=== PATIENT | male | born 1955 | race Caucasian/White ===

== ENCOUNTER 2017-09-05 18:33 | Inpatient (IN) ==
--- NOTE | 2017-09-05 18:41 | Emergency Department Note ---
Disposition Clinical Impression: Pedal edema, History of CHF (congestive heart failure) Disposition: Admitted As Inpatient Condition: Good Instructions: Leg Edema (ED) Referrals: Yobani Berrios CNP [Primary Care Provider] - Forms: ED Satisfaction Letter Time of Disposition: 21:19 Extremity Problem HPI - General Chief complaint: ED Extremity Problem,Nontraumatic Stated complaint: out of lasix. legs swelling Time Seen by Provider: 09/05/17 18:38 Source: patient, EMS Mode of arrival: EMS Limitations: no limitations Nursing Notes Reviewed: Yes Vital Signs Reviewed: Yes - History of Present Illness HPI Narrative: patient is a 61-year-old male with past medical history of CHF, hypertension. He presents today via EMS due to LE edema. (Called EMS due to lack of transportation) Patient states that he has transportation issues and has not been able to make it to his PCP to get refills for his lasix. He usually takes lasix 40mg daily but has not had it for 8 days. He has noticed gradual worsening of LE edema up to his lower abdomen along with occasional shortness of breath. otherwise, denies chest pain, shortness of breath, N/V/D, fevers, abdominal pain. He presents today requesting a refill for lasix. - Related Data Previous Rx's Medication Instructions Recorded Hydrocodone/Acetaminophen [[place] 1 tab PO Q6H PRN #14 tab 06/07/15 5-325 Tablet] Permethrin CRM [Elimite] 1 appl TP ONCE #10 tube 06/07/15 Sulfamethoxazole/Trimeth DS 1 each PO BID 10 Days tablet 11/06/16 [Bactrim DS] cephALEXin [Keflex] 500 mg PO QID 10 Days capsule 11/06/16 Allergies Allergy/AdvReac Type Severity Reaction Status Date / Time No Known Allergies Allergy Verified 09/05/17 18:41 All systems ED: reviewed and negative except as stated. Constitutional: Denies: fever Cardiovascular: Reports: dyspnea on exertion. Denies: chest pain, palpitations Respiratory: Reports: dyspnea (mild occasional). Denies: cough, wheezes, hemoptysis Gastrointestinal: Denies: abdominal pain, nausea, vomiting, diarrhea Genitourinary: Denies: urgency, dysuria Neurological: Denies: headache, weakness, numbness, paresthesias Past Medical History - Past Medical History Attestation: Yes The following information was validated with the patient. Source: patient Medical history: Reports: asthma, COPD, hypertension Surgical history: Reports: no surgical history Psychiatric history: Reports: no psych history - Social History Smoking Status: Current every day smoker Smokeless Tobacco Status: No Alcohol use: Reports: heavy Drug use: Reports: none Physical Exam - General Limitations: no limitations General appearance: alert, in no apparent distress - Head Head exam: atraumatic, normocephalic, normal inspection - Eye Eye exam: Present: normal appearance, PERRL, EOMI - ENT ENT exam: normal exam, normal oropharynx, mucous membranes moist - Neck Neck exam: Present: normal inspection, full ROM, trachea midline - Chest Chest inspection: Present: normal inspection, symmetric chest wall rise - Respiratory Respiratory exam: Present: normal lung sounds bilaterally. Absent: respiratory distress, wheezes, stridor, accessory muscle use - Cardiovascular Cardiovascular exam: Present: regular rate, normal rhythm, normal heart sounds - Abdominal Exam Abdominal exam: Present: soft, Non-Tender, distention (mild distention). Absent : tenderness, guarding, rebound, rigidity - Extremities Exam Extremities exam: Present: normal capillary refill, pedal edema (bilateral LE pitting edema from feet to thighs and lower abdomen). Absent: full ROM, tenderness, calf tenderness - Neurological Exam Neurological exam: Present: alert, oriented X3 - Psychiatric Psychiatric exam: Present: normal affect, normal mood - Skin Skin exam: Present: warm, dry, intact, normal color Course Course Narrative: patient mildly hypertensive. The rest of the vitals were within normal vizcarra on room air. Physical exam shows: bilateral LE pitting edema from feet to thighs and lower abdomen. Otherwise, lungs are clear to auscultation, no acute distress,saturation in upper 90s on room air. patient has been out of Lasix for a days due to social reas We will obtain basic blood work, CXR, EKG to assess for any causes of acute worsening of LE edema besides lack of medication. 21:18 EKG shows no acute ST changes, chest x-ray negative. BNP is elevated in 300s, well above his baseline of 14. He is still having some shortness of breath. Patient was given IV Lasix 40 mg and he will be admitted to the hospitalist for further care. Vital Signs Temperature 97.6 F 09/05/17 18:39 Pulse Rate 71 09/05/17 18:39 Respiratory Rate 16 09/05/17 18:39 Blood Pressure 158/89 09/05/17 18:39 O2 Sat by Pulse Oximetry 97 09/05/17 18:39 Temperature 97.6 F 09/05/17 18:39 Pulse Rate 71 09/05/17 18:39 Respiratory Rate 16 09/05/17 18:39 Blood Pressure 158/89 09/05/17 18:39 O2 Sat by Pulse Oximetry 97 09/05/17 18:39 Oxygen Delivery Oxygen Delivery Room Air Extremity Problem, Nontraumati - MDM Narrative Medical decision making narrative: patient mildly hypertensive. The rest of the vitals were within normal vizcarra on room air. Physical exam shows: bilateral LE pitting edema from feet to thighs and lower abdomen. Otherwise, lungs are clear to auscultation, no acute distress,saturation in upper 90s on room air. patient has been out of Lasix for a days due to social reas We will obtain basic blood work, CXR, EKG to assess for any causes of acute worsening of LE edema besides lack of medication. 21:18 EKG shows no acute ST changes, chest x-ray negative. BNP is elevated in 300s, well above his baseline of 14. He is still having some shortness of breath. Patient was given IV Lasix 40 mg and he will be admitted to the hospitalist for further care. - Medical Records Medical records reviewed: Yes I reviewed the patient's medical records. - Lab Data Lab results reviewed: Yes I reviewed the patient's lab results. Result diagrams: 09/05/17 20:14 09/05/17 19:33 Lab Results 09/05/17 09/05/17 09/05/17 Range/Units 19:33 19:33 20:14 WBC 7.0 (4.3-11.1) K/mcL RBC 4.92 (4.19-5.50) M/mcL Hgb 16.7 (12.9-16.9) g/dL Hct 48.6 (37.5-50.1) % MCV 98.8 (83.0-100.0) fL MCH 33.9 H (28.0-33.3) pg MCHC 34.4 (31.6-35.5) g/dL RDW 13.9 (11.5-14.5) % Plt Count 199 (140-400) K/mcL MPV 9.0 L (9.4-12.4) fL Immature Gran % 0.4 (0-4) % Seg Neutrophils % 62.9 % Lymphocytes % 23.9 % Monocytes % 10.9 % Eosinophils % 1.0 % Basophils % 0.9 % Neutrophils # 4.4 (1.6-8.9) K/mcL Lymphocytes # 1.7 (0.6-4.6) K/mcL Monocytes # 0.8 (0.0-1.3) K/mcL Eosinophils # 0.1 (0.0-0.6) K/mcL Basophils # 0.1 (0.0-0.2) K/mcL Immature Plt Fraction 2.8 (1.1-6.1) % Sodium 126 L (136-145) mEq/L Potassium 4.7 (3.5-5.1) mEq/L Chloride 97 L (98-107) mEq/L Carbon Dioxide 18 L (23-29) mEq/L BUN 10 (8-23) mg/dL Creatinine 0.64 L (0.70-1.30) mg/dL Est GFR ( Amer) > 60 (> 60) Est GFR (Non-Af Amer) > 60 (> 60) BUN/Creatinine Ratio 16 (6-26) Glucose 89 (70-105) mg/dL Calculated Osmolality 261 L (280-300) Calcium 8.3 L (8.6-10.3) mg/dL Troponin I (< 0.04) ng/mL B-Natriuretic Peptide (Less than 100) pg/mL Specimen Rejected Clotted 09/05/17 09/05/17 Range/Units 20:14 20:42 WBC (4.3-11.1) K/mcL RBC (4.19-5.50) M/mcL Hgb (12.9-16.9) g/dL Hct (37.5-50.1) % MCV (83.0-100.0) fL MCH (28.0-33.3) pg MCHC (31.6-35.5) g/dL RDW (11.5-14.5) % Plt Count (140-400) K/mcL MPV (9.4-12.4) fL Immature Gran % (0-4) % Seg Neutrophils % % Lymphocytes % % Monocytes % % Eosinophils % % Basophils % % Neutrophils # (1.6-8.9) K/mcL Lymphocytes # (0.6-4.6) K/mcL Monocytes # (0.0-1.3) K/mcL Eosinophils # (0.0-0.6) K/mcL Basophils # (0.0-0.2) K/mcL Immature Plt Fraction (1.1-6.1) % Sodium (136-145) mEq/L Potassium (3.5-5.1) mEq/L Chloride (98-107) mEq/L Carbon Dioxide (23-29) mEq/L BUN (8-23) mg/dL Creatinine (0.70-1.30) mg/dL Est GFR ( Amer) (> 60) Est GFR (Non-Af Amer) (> 60) BUN/Creatinine Ratio (6-26) Glucose (70-105) mg/dL Calculated Osmolality (280-300) Calcium (8.6-10.3) mg/dL Troponin I < 0.03 (< 0.04) ng/mL B-Natriuretic Peptide 379 H (Less than 100) pg/mL Specimen Rejected - Radiology Data Radiology results reviewed: Yes I reviewed the patient's radiology results. Chest X-Ray 09/05/17 18:45 IMPRESSION: No acute cardiopulmonary process. D/ / Zachery Rivero MD / Zachery Rivero MD Interpreting Provider: Zachery Rivero MD - EKG Data EKG attestation: Yes I reviewed and interpreted this EKG. EKG results narrative: 09/05/17 at 18:47. NSR. Rate 71. FL 174, QRS 93, QTC 429, Normal axis. No acute ST elevation or depression. S.B.A.R. - S.B.A.R. Situation: Demographics, MOA Background: Presenting Complaint, Relevant PMH, Meds, & Allergies Assessment: Vital Signs, Course and respsone to treatment, Exam Concerns, Patient/Family Expectation, Pertinant Lab Results, Outstanding Labs Recommendation: Barrier(s) to disposition, Recommendation based on pending studies, treatments, or consults S.B.A.R. Report Given to: Dr. Jayjay Still Repor Time: 21:19 Attestation Statement - Attestation Attestation: I examined this patient and my medical decision-making was reviewed with the Resident Physician. I agree with the documented findings, disposition and treatment plan as described except to the extent set forth below. Patient presents with requesting medication refill. He is out of his Lasix. He reports increasing lower extremity edema. Plan to provide refill for Lasix. He has no dyspnea or evidence of heart failure on chest x-ray. His vital signs are without significant derangement. He has no chest pain or orthopnea. I do not think he needs inpatient diuresis at this point. Final disposition pending results of proBNP as well as troponin
[2017-09-05 19:55] LABS: BUN/Creatinine Ratio 16 (6-26); Blood Urea Nitrogen 10 mg/dL (8-23); Calcium 8.3 mg/dL (8.6-10.3); Carbon Dioxide 18 mEq/L (23-29); Chloride 97 mEq/L (98-107); Glucose 89 mg/dL (70-105); Osmolality,Calculated 261 (280-300); Potassium 4.7 mEq/L (3.5-5.1); Sodium 126 mEq/L (136-145); eGFR For African Americans > 60 (> 60); eGFR For Non-African Americans > 60 (> 60)
[2017-09-05 20:24] LABS: Basophils # 0.1 K/mcL (0.0-0.2); Basophils % 0.9 %; Eosinophils # 0.1 K/mcL (0.0-0.6); Hematocrit 48.6 % (37.5-50.1); Hemoglobin 16.7 g/dL (12.9-16.9); Immature Granulocytes % 0.4 % (0-4); Immature Platelets 2.8 % (1.1-6.1); Lymphocytes # 1.7 K/mcL (0.6-4.6); Lymphocytes % 23.9 %; Mean Corpuscular HGB Conc 34.4 g/dL (31.6-35.5); Mean Corpuscular Hemoglobin 33.9 pg (28.0-33.3); Mean Corpuscular Volume 98.8 fL (83.0-100.0); Monocytes # 0.8 K/mcL (0.0-1.3); Monocytes % 10.9 %; Neutrophils # 4.4 K/mcL (1.6-8.9); Platelet Count 199 K/mcL (140-400); Red Blood Count 4.92 M/mcL (4.19-5.50); Red Cell Distribution Width 13.9 % (11.5-14.5); Segmented Neutrophils % 62.9 %
[2017-09-05] MEDS ORDERED: Furosemide 40 MG/4 ML VIAL IVP ONE (20:59)
[2017-09-05] MEDS ORDERED: Naloxone 0.4 MG/ML INJ IVP PRN (22:48)
--- NOTE | 2017-09-05 23:25 | Internal Med History&Physical ---
Date of Encounter: 09/05/17 Time of Encounter: 23:00 Assessment and Plan (1) Congestive heart failure Current visit: Yes Status: Suspected Patient presenting with orthopnea and pedal edema. Suspected diastolic congestive heart failure. We will get echocardiogram. Continue IV Lasix. Monitor input and output. Telemetry monitoring. Daily weights. Fluid restriction at 1.5 L per 24 hours. Qualifiers: Congestive heart failure type: diastolic Congestive heart failure chronicity: acute on chronic Qualified Code(s): I50.33 - Acute on chronic diastolic (congestive) heart failure (2) Pedal edema Current visit: Yes Status: Acute Patient presenting with bilateral pedal edema which is worsening over the past week. He received IV Lasix in the ER. Will continue. Also check venous Dopplers bilaterally. (3) Tobacco abuse Current visit: Yes Status: Chronic Offered nicotine patch. Refused at this time. Counseled about cessation. (4) Alcohol use disorder Current visit: Yes Status: Chronic Will monitor for signs of withdrawal. Place patient on thiamine and folic acid (5) Hyponatremia Current visit: Yes Status: Chronic Patient appears to be having chronic hyponatremia. We will check urine sodium, creatinine and osmolality. Uncertain etiology. Watch sodium levels closely as patient receives IV Lasix. (6) DVT prophylaxis Current visit: Yes Status: Acute With subcutaneous heparin Internal Medicine - H&P: HPI Chief complaint: Bilateral lower extremity edema Admitted From: Emergency Dept Plans for Post Hospital Care: Home History of present illness: Mr. Hollins is a 61 year old male patient with a history of reported congestive heart failure presented to the ER with complaints of worsening swelling in both lower extremities extending up to the thigh. Patient had previously been on Lasix but had run out of this medication about 1 week back. Patient reports orthopnea. No chest pain. No nausea or vomiting. No palpitations. Patient says that he was diagnosed with lung cancer after 2 nodules were found and biopsied but was not treated for it. He does not follow up with cardiology. Denies any prior history of coronary artery disease or stents. Patient does report a history of chronic alcohol use and drinks about 5 beers daily. His last drink was prior to coming to the hospital. Past Med Surg Social Fam HX - Past Medical History Attestation: Yes The following information was validated with the patient. Source: patient Medical history: asthma, CHF, COPD, hypertension Psychiatric history: no psych history - Past Surgical History Surgical History: no surgical history - Social History Smoking Status: Current every day smoker Smokeless Tobacco Status: No Alcohol use: heavy, recent Drug use: none - Family History Mother History Unknown: Yes Internal Medicine - H&P: Meds Hydrocodone/Acetaminophen [[place] 5-325 Tablet] 1 tab PO Q6H PRN #14 tab [Rx] Permethrin CRM [Elimite] 1 appl TP ONCE #10 tube 06/07/15 [Rx] Sulfamethoxazole/Trimeth DS [Bactrim DS] 1 each PO BID 10 Days tablet 11/06/16 [Rx] cephALEXin [Keflex] 500 mg PO QID 10 Days capsule 11/06/16 [Rx] 3 Allergy/AdvReac Type Severity Reaction Status Date / Time No Known Allergies Allergy Verified 09/05/17 18:41 All Systems PM: A 10-system review of systems was performed and is negative for pertinent findings except as documented above in the HPI. - Constitutional Constitutional: no chills, no fever(s), no night sweats - EENT Eyes: no change in vision, no discharge, no pain, no photophobia Ears: no ear discharge, no ear pain, no tinnitus Nose, mouth and throat: no dysphagia, no nasal discharge, no neck pain, no sore throat - Cardiovascular Cardiovascular ROS IM: dyspnea on exertion, edema, orthopnea, no chest pain, no diaphoresis, no lightheadedness, no palpitations, no syncope - Respiratory Respiratory: no cough, no dyspnea, no wheezing, no excessive phlegm production - Gastrointestinal Gastrointestinal: no abdominal pain, no diarrhea, no hematemesis, no hematochezia, no melena, no nausea, no vomiting - Musculoskeletal Musculoskeletal ROS IM: no numbness, no tingling - Integumentary Integumentary IM: no rash, no unusual bruising - Neurological Neurological ROS: no confusion, no convulsions, no focal weakness, no numbness, no tingling, no tremor(s) - Hematologic/Lymphatic Hematologic/Lymphatic: no easy bruising - Constitutional Vitals: Temp Pulse Resp BP Pulse Ox 97.2 F L 81 19 146/96 97 09/05/17 22:19 09/05/17 22:19 09/05/17 22:19 09/05/17 22:19 09/05/17 22:19 General appearance: Present: cooperative, mild distress, A&O X 3, answers questions appropriately - Neck Neck exam general surgery: Present: supple, trachea midline. Absent: lymphadenopathy - Respiratory Respiratory exam: Present: prolonged expiratory phase. Absent: accessory muscle use, rales, rhonchi, wheezes - Cardiovascular Cardiovascular exam: Present: RRR, +S1, +S2. Absent: diastolic murmur, gallop, rubs, systolic murmur - Extremities Exam Extremities exam: Present: warm, radial pulses palpable and symmetrical. Absent : calf tenderness, cyanotic, pedal edema - Neurological Exam Neurological exam: Present: alert, oriented X3, no focal deficits. Absent: facial droop, speech deficit - Skin Skin exam: Present: dry, intact Internal Med - H&P Results - Labs CBC & Chem 7: 09/05/17 20:14 09/05/17 19:33 - Impressions Impressions Chest X-Ray 09/05/17 18:45 IMPRESSION: No acute cardiopulmonary process. D/ / Zachery Rivero MD / Zachery Rivero MD Interpreting Provider: Zachery Rivero MD
[2017-09-06 01:19] LABS: Bilirubin,Urine Negative (Negative); Blood,Urine Negative (Negative); Clarity,Urine Clear (Clear); Color,Urine Yellow (Yellow); Glucose,Urine (UA) Normal (Normal); Ketones,Urine Negative (Negative); Leukocyte Esterase,Urine Negative (Negative); Nitrite,Urine Negative (Negative); Protein,Urine Negative (Neg-Trace); Specific Gravity,Urine 1.016 (1.010-1.025); Urobilinogen,Urine Normal (Normal)
[2017-09-06 01:34] LABS: Sodium, Urine 51.2 mEq/L
[2017-09-06 05:55] LABS: Basophils # 0.1 K/mcL (0.0-0.2); Eosinophils # 0.1 K/mcL (0.0-0.6); Eosinophils % 0.7 %; Hematocrit 44.4 % (37.5-50.1); Immature Granulocytes % 0.6 % (0-4); Lymphocytes # 2.2 K/mcL (0.6-4.6); Lymphocytes % 31.4 %; Mean Corpuscular HGB Conc 33.8 g/dL (31.6-35.5); Mean Corpuscular Hemoglobin 33.9 pg (28.0-33.3); Mean Corpuscular Volume 100.2 fL (83.0-100.0); Mean Platelet Volume 9.8 fL (9.4-12.4); Monocytes # 0.8 K/mcL (0.0-1.3); Monocytes % 11.8 %; Neutrophils # 3.8 K/mcL (1.6-8.9); Platelet Count 111 K/mcL (140-400); Red Blood Count 4.43 M/mcL (4.19-5.50); Red Cell Distribution Width 14.1 % (11.5-14.5); Segmented Neutrophils % 54.5 %
[2017-09-06] MEDS: *HR* Heparin 5,000 UNIT/ML VIAL SQ SCH ×2 (06:02→17:08)
[2017-09-06] MEDS ORDERED: Furosemide 20 MG/2 ML VIAL IVP SCH (08:00)
[2017-09-06] MEDS ORDERED: *HR* LORazepam 2 MG/ML VIAL IVP PRN ×3 (08:36)
[2017-09-06] MEDS ORDERED: *HR* Promethazine 25 MG/ML VIAL IVP PRN (08:36)
[2017-09-06] MEDS: Vitamin B Complex/Vit C/Vit E 1 EACH TABLET PO SCH (09:33)
[2017-09-06] MEDS: Thiamine (B-1) 100 MG TABLET PO SCH (09:33)
[2017-09-06] MEDS: Folic Acid 1 MG TABLET PO SCH (09:34)
[2017-09-06 09:55] LABS: Amphetamine Screen,Urine Negative ng/mL (Cutoff=1000); Barbiturate Screen,Urine Negative ng/mL (Cutoff=200); Benzodiazepines Screen,Urine Negative ng/mL (Cutoff=200); Cannabinoid Screen,Urine Negative ng/mL (Cutoff = 50); Cocaine Screen,Urine Negative ng/mL (Cutoff= 300); Opiate Screen,Urine Negative ng/mL (Cutoff=300); Phencyclidine Screen,Urine Negative ng/mL (Cutoff=25)
[2017-09-06 10:02] LABS: INR 1.7; Prothrombin Time 18.6 Seconds (9.4-12.1)
[2017-09-06 10:08] LABS: Ethanol < 10 mg/dL (0-10)
[2017-09-06 10:15] LABS: Amylase 35 Units/L (29-103); Lipase 41 Units/L (11-82)
[2017-09-06 12:37] LABS: BUN/Creatinine Ratio 15 (6-26); Blood Urea Nitrogen 12 mg/dL (8-23); Calcium 8.2 mg/dL (8.6-10.3); Carbon Dioxide 22 mEq/L (23-29); Chloride 96 mEq/L (98-107); Glucose 120 mg/dL (70-105); Osmolality,Calculated 271 (280-300); Potassium 3.6 mEq/L (3.5-5.1); Sodium 130 mEq/L (136-145); eGFR For African Americans > 60 (> 60); eGFR For Non-African Americans > 60 (> 60)
[2017-09-06] MEDS ORDERED: Perflutren Lipid Microsphere 1.3 ML in 0.9 % Sodium Chloride 8.7 ML IVP ONE (13:30)
[2017-09-06] MEDS: Furosemide 40 MG/4 ML VIAL IVP SCH ×2 (14:55→17:08)
--- NOTE | 2017-09-06 18:03 | Internal Med Progress Note ---
Date of Encounter: 09/06/17 Time of Encounter: 18:01 - Assessment and plan (1) Congestive heart failure Current Visit: Yes Status: Suspected Assessment and plan: Patient presented with orthopnea and edema to the thighs. Suspect diastolic congestive heart failure. Echocardiogram completed that report is pending. increase IV Lasix to 3 times a day dosing Monitor intake and output Cardiac monitoring Daily weights Fluid restrictions at 1-1/2 L per 24 hours Qualifiers: Congestive heart failure type: diastolic Congestive heart failure chronicity: acute on chronic Qualified Code(s): I50.33 - Acute on chronic diastolic (congestive) heart failure (2) Anasarca Current Visit: Yes Status: Acute Assessment and plan: Venous Dopplers pending Should improve with IV Lasix (3) Tobacco abuse Current Visit: Yes Status: Chronic Assessment and plan: Cessation recommended (4) Alcohol use disorder Current Visit: Yes Status: Chronic Assessment and plan: Placed on [place] scale (5) Hyponatremia Current Visit: Yes Status: Chronic Assessment and plan: Monitor labs likely secondary to his alcohol use - Subjective Interval history: Patient is lying in bed with his significant other at the bedside. He denies any chest pain or shortness of breath. He is currently on room air he states he has had swelling of his lower extremities for a couple weeks. It got bad enough that he decided to come in to be checked out. He reports he smokes about a half a pack of cigarettes a day now he has cut down but is been smoking since he was a teenager. He also drinks 5-6 beers every day. I explained we will put him on a scale to watch for alcohol withdrawal and he is okay with that. - Constitutional Vitals: Temp Pulse Resp BP Pulse Ox 97.4 F L 86 16 126/86 96 09/06/17 15:23 09/06/17 15:23 09/06/17 15:23 09/06/17 15:23 09/06/17 15:23 General appearance: Present: cooperative, A&O X 3, pleasant, no acute distress, answers questions appropriately Exam: Poor hygiene - Head Head exam: Present: atraumatic, normocephalic - Eye Eye exam: Present: conjuntiva pink, sclera anicteric Additional comments: Poor dentition - Neck Neck exam general surgery: Present: supple, trachea midline. Absent: lymphadenopathy - Respiratory Respiratory exam: Present: decreased breath sounds, prolonged expiratory phase. Absent: accessory muscle use, rales, rhonchi, wheezes - Cardiovascular Cardiovascular exam: Present: RRR, +S1, +S2. Absent: diastolic murmur, gallop, rubs, systolic murmur - GI/Abdominal GI/Abdominal exam: Present: firm, normal bowel sounds, no peritoneal signs. Absent: distended, tenderness Additional comments: Abdominal wall edema - Extremities Exam Extremities exam: Present: pedal edema, warm, radial pulses palpable and symmetrical. Absent: calf tenderness, cyanotic Additional comments: Anasarca to the flanks - Neurological Exam Neurological exam: Present: CN II-XII intact, oriented X3, no focal deficits. Absent: pronater drift, facial droop, speech deficit - Skin Skin exam: Present: dry, intact, warm Internal Medicine: Result - Labs CBC & Chem 7: 09/06/17 04:34 09/06/17 09:31 Labs: Short CBC 09/06/17 Range/Units 04:34 WBC 7.0 (4.3-11.1) K/mcL Hgb 15.0 D (12.9-16.9) g/dL Hct 44.4 (37.5-50.1) % Plt Count 111 L (140-400) K/mcL Neutrophils # 3.8 (1.6-8.9) K/mcL BMP 09/06/17 09:31 Sodium 130 L Potassium 3.6 Chloride 96 L Carbon Dioxide 22 L BUN 12 Creatinine 0.80 Glucose 120 H Calcium 8.2 L Cardiac Enzymes 09/06/17 09/06/17 Range/Units 04:34 09:31 Troponin I < 0.03 < 0.03 (< 0.04) ng/mL Urine 09/06/17 Range/Units 01:13 Urine Color Yellow (Yellow) Urine Clarity Clear (Clear) Urine pH 5.0 (5.0-8.0) pH Units Ur Specific [place] 1.016 (1.010-1.025) Urine Protein Negative (Neg-Trace) mg/dL Urine Glucose (UA) Normal (Normal) mg/dL - ABG Interpretation ABG results: PT/INR, D-dimer PT 18.6 Seconds (9.4-12.1) H 09/06/17 09:31 Consult Discharge Plan - Plan Referrals: Yobani Berrios, FINANCE ASSOCIATE [Primary Care Provider] -
[2017-09-07 04:41] LABS: Basophils # 0.1 K/mcL (0.0-0.2); Basophils % 0.8 %; Eosinophils # 0.1 K/mcL (0.0-0.6); Eosinophils % 0.9 %; Hematocrit 42.2 % (37.5-50.1); Hemoglobin 14.6 g/dL (12.9-16.9); Immature Granulocytes % 0.3 % (0-4); Lymphocytes # 2.9 K/mcL (0.6-4.6); Lymphocytes % 37.8 %; Mean Corpuscular HGB Conc 34.6 g/dL (31.6-35.5); Mean Corpuscular Hemoglobin 33.7 pg (28.0-33.3); Mean Corpuscular Volume 97.5 fL (83.0-100.0); Mean Platelet Volume 9.4 fL (9.4-12.4); Monocytes # 0.9 K/mcL (0.0-1.3); Monocytes % 11.5 %; Neutrophils # 3.7 K/mcL (1.6-8.9); Platelet Count 171 K/mcL (140-400); Red Blood Count 4.33 M/mcL (4.19-5.50); Red Cell Distribution Width 13.9 % (11.5-14.5); Segmented Neutrophils % 48.7 %
[2017-09-07] MEDS: *HR* Heparin 5,000 UNIT/ML VIAL SQ SCH ×2 (06:15→16:22)
[2017-09-07 08:55] LABS: Alanine Aminotransferase 32 Units/L (7-52); Albumin 2.7 g/dL (3.5-5.7); Albumin/Globulin Ratio 0.8 (1.1-2.2); Alkaline Phosphatase 79 Units/L (34-104); Aspartate Amino Transferase 71 Units/L (13-39); Bilirubin,Total 1.2 mg/dL (0.3-1.0); Blood Urea Nitrogen 14 mg/dL (8-23); Calcium 8.2 mg/dL (8.6-10.3); Carbon Dioxide 26 mEq/L (23-29); Chloride 96 mEq/L (98-107); Globulin 3.5 g/dL (2.4-3.5); Glucose 83 mg/dL (70-105); Osmolality,Calculated 274 (280-300); Potassium 3.1 mEq/L (3.5-5.1); Sodium 132 mEq/L (136-145); Total Protein 6.2 g/dL (6.4-8.9)
[2017-09-07 09:34] LABS: BUN/Creatinine Ratio 15 (6-26); eGFR For African Americans > 60 (> 60); eGFR For Non-African Americans > 60 (> 60)
[2017-09-07] MEDS: Folic Acid 1 MG TABLET PO SCH (09:37)
[2017-09-07] MEDS: Thiamine (B-1) 100 MG TABLET PO SCH (09:37)
[2017-09-07] MEDS: Furosemide 40 MG/4 ML VIAL IVP SCH ×3 (09:37→16:22)
[2017-09-07] MEDS: Vitamin B Complex/Vit C/Vit E 1 EACH TABLET PO SCH (09:37)
[2017-09-07] MEDS: Acetaminophen 325 MG TABLET PO PRN (09:46)
--- NOTE | 2017-09-07 12:39 | Internal Med Progress Note ---
Date of Encounter: 09/07/17 Time of Encounter: 12:37 - Assessment and plan (1) Congestive heart failure Current Visit: Yes Status: Suspected Assessment and plan: Patient presented with orthopnea and edema to the thighs. Suspect diastolic congestive heart failure. IV Lasix to 3 times a day dosing Monitor intake and output Cardiac monitoring Daily weights Fluid restrictions at 1-1/2 L per 24 hours Echocardiogram completed, report reviewed with following: technically challenging study was not all windows well visualized. Report. Normal sinus rhythm, LVEF 65% mild left ventricular diastolic dysfunction. Right ventricular is not well visualized even with the use of Definity the endocardial border was not well defined. Overall LV systolic function visually appears normal to hyperdynamic. No significant valve dysfunction by Doppler. Qualifiers: Congestive heart failure type: diastolic Congestive heart failure chronicity: acute on chronic Qualified Code(s): I50.33 - Acute on chronic diastolic (congestive) heart failure (2) Anasarca Current Visit: Yes Status: Acute Assessment and plan: Venous Dopplers report pending Slight improvement with fluid restrictions and increased Lasix dosing (3) Tobacco abuse Current Visit: Yes Status: Chronic Assessment and plan: Cessation is recommended (4) Alcohol use disorder Current Visit: Yes Status: Chronic Assessment and plan: Placed on Ciwa scale Signs of withdrawal (5) Hyponatremia Current Visit: Yes Status: Chronic Assessment and plan: Monitor labs likely secondary to his alcohol use Sodium level slowly increasing - Subjective Interval history: Patient is lying in bed with his significant other at the bedside. He states he feels about the same. He denies any chest pain or shortness of breath. He is currently on room air. He states his legs do not feel any worse but are not really painful. He has been up ambulating to the bathroom without any difficulty. He denies any shortness of breath. - Constitutional Vitals: Temp Pulse Resp BP Pulse Ox 98.1 F 96 16 128/81 94 09/07/17 12:29 09/07/17 12:29 09/07/17 12:29 09/07/17 12:29 09/07/17 12:29 General appearance: Present: cooperative, disheveled, A&O X 3, pleasant, no acute distress, answers questions appropriately - Head Head exam: Present: atraumatic, normocephalic - Eye Eye exam: Present: conjuntiva pink, sclera anicteric - Neck Neck exam general surgery: Present: supple, trachea midline. Absent: lymphadenopathy - Respiratory Respiratory exam: Present: decreased breath sounds, CTAB. Absent: accessory muscle use, chest wall tenderness, rales, rhonchi, wheezes - Cardiovascular Cardiovascular exam: Present: RRR, +S1, +S2. Absent: diastolic murmur, gallop, rubs, systolic murmur - GI/Abdominal GI/Abdominal exam: Present: firm, normal bowel sounds, no peritoneal signs. Absent: distended, tenderness - Extremities Exam Extremities exam: Present: pedal edema, warm, radial pulses palpable and symmetrical. Absent: calf tenderness, cyanotic Additional comments: Flank edema is decreased from yesterday's assessment but still present. Slightly less edematous of the lower extremities but still anasarca - Neurological Exam Neurological exam: Present: oriented X3, no focal deficits. Absent: pronater drift, facial droop, speech deficit - Skin Skin exam: Present: dry, intact, warm Internal Medicine: Result - Labs CBC & Chem 7: 09/07/17 03:37 09/07/17 03:37 Labs: Short CBC 09/07/17 Range/Units 03:37 WBC 7.7 (4.3-11.1) K/mcL Hgb 14.6 (12.9-16.9) g/dL Hct 42.2 (37.5-50.1) % Plt Count 171 D (140-400) K/mcL Neutrophils # 3.7 (1.6-8.9) K/mcL BMP 09/06/17 09/07/17 09:31 03:37 Sodium 130 L 132 L Potassium 3.6 3.1 L Chloride 96 L 96 L Carbon Dioxide 22 L 26 BUN 12 14 Creatinine 0.80 0.96 Glucose 120 H 83 Calcium 8.2 L 8.2 L Liver Function 09/07/17 Range/Units 03:37 Total Bilirubin 1.2 H (0.3-1.0) mg/dL AST 71 H (13-39) Units/L ALT 32 (7-52) Units/L Alkaline Phosphatase 79 (34-104) Units/L Albumin 2.7 L (3.5-5.7) g/dL - ABG Interpretation ABG results: PT/INR, D-dimer PT 18.6 Seconds (9.4-12.1) H 09/06/17 09:31 - Impressions Impressions Echocardiogram 09/06/17 23:31 Impressions: Technically challenging study with suboptimal windows. Even with use of Definity, the endocardial border is not well defined. Overall, LV systolic function visually appears normal to hyperdynamic. There is a dynamic late-peaking LV outflow signal without significant gradient. RV is not well visualized. No significant valve dysfunction by Doppler although not always optimally obtained. Lack of TR gradient to estimate RVSP. IVC is not well visualized. Left Ventricular Wall Motion: Rest Echo Findings The mid anterior septal, mid inferior lateral, basal anterior septal and basal inferior lateral jarvis were not visualized. All other wall segments showed normal motion. Findings: Study Quality * Technically challenging - not all windows are well visualized. ECG Findings * Normal sinus rhythm. Left Ventricle * LVEF 65-70%. * Mild left ventricular diastolic dysfunction. * Late peaking dynamic LV outflow signal without significant gradient. * Definity echo contrast was used. * LV size and wall thickness are not well obtained. Right Ventricle * RV is not well visualized. Left Atrium * Left atrium is not well visualized. Right Atrium * Right atrium is not well visualized. Aortic Valve * Aortic valve not well visualized. * No aortic stenosis although Doppler not optimally obtained. * No aortic regurgitation. Mitral Valve * Mitral valve not well visualized. * No mitral stenosis. * No mitral regurgitation. Tricuspid Valve * Tricuspid valve not well visualized. * No tricuspid regurgitation. Pulmonic Valve * Pulmonic valve is not well visualized. * No pulmonic stenosis. * No pulmonic regurgitation. Pulmonary Artery * Pulmonary artery not well visualized. Aorta * Not well visualized. Pericardium * There is no pericardial effusion present. Interatrial Septum * Interatrial septum not well evaluated. IVC * The IVC is not well evaluated. Consult Discharge Plan - Plan Referrals: Yobani Berrios, ART APPRAISER [Primary Care Provider] -
[2017-09-07] MEDS ORDERED: EPHEDrine 50 MG/ML VIAL ONE (16:31)
--- NOTE | 2017-09-07 19:00 | Event Note ---
Date of Encounter: 09/07/17 Time of Encounter: 18:59 Milli radiologist called and spoke to me regarding the ultrasound of the abdomen completed on Mr. Hollins this afternoon. He states it is an interesting finding of a intrahepatic filling defect of the IVC with differential of thrombus versus mass. He recommends obtaining a CT of abdomen and pelvis with IV contrast tonight to determine the need for anticoagulation.
[2017-09-08 00:33] LABS: Hematocrit 43.6 % (37.5-50.1); Hemoglobin 15.4 g/dL (12.9-16.9); Mean Corpuscular HGB Conc 35.3 g/dL (31.6-35.5); Mean Corpuscular Hemoglobin 34.5 pg (28.0-33.3); Mean Corpuscular Volume 97.5 fL (83.0-100.0); Mean Platelet Volume 9.4 fL (9.4-12.4); Platelet Count 141 K/mcL (140-400); Red Blood Count 4.47 M/mcL (4.19-5.50); Red Cell Distribution Width 14.1 % (11.5-14.5)
[2017-09-08 00:41] LABS: INR 1.7; Prothrombin Time 18.6 Seconds (9.4-12.1)
[2017-09-08 00:44] LABS: Activated Partial Thrombo Time 35.5 Seconds (26.0-36.0)
[2017-09-08] MEDS ORDERED: *HR* Heparin 5,000 UNIT/ML VIAL IVP ONE ×2 (00:46)
[2017-09-08] MEDS ORDERED: *HR* Heparin 5,000 UNIT/ML VIAL IVP PRN ×4 (00:46)
[2017-09-08 00:50] LABS: Alanine Aminotransferase 30 Units/L (7-52); Albumin 2.7 g/dL (3.5-5.7); Albumin/Globulin Ratio 0.7 (1.1-2.2); Alkaline Phosphatase 74 Units/L (34-104); Aspartate Amino Transferase 72 Units/L (13-39); BUN/Creatinine Ratio 17 (6-26); Bilirubin,Total 1.2 mg/dL (0.3-1.0); Blood Urea Nitrogen 15 mg/dL (8-23); Calcium 8.4 mg/dL (8.6-10.3); Carbon Dioxide 27 mEq/L (23-29); Chloride 96 mEq/L (98-107); Globulin 3.9 g/dL (2.4-3.5); Glucose 120 mg/dL (70-105); Osmolality,Calculated 276 (280-300); Potassium 3.7 mEq/L (3.5-5.1); Sodium 132 mEq/L (136-145); Total Protein 6.6 g/dL (6.4-8.9); eGFR For African Americans > 60 (> 60); eGFR For Non-African Americans > 60 (> 60)
[2017-09-08] MEDS: Heparin 25,000 UNIT/500 ML D5W 25,000 UNIT/500 ML BAG IVC SCH (00:52)
--- NOTE | 2017-09-08 01:45 | Discharge Summary ---
<MadhavShawn - Last Filed: 09/08/17 01:41> Date of Encounter: 09/08/17 Time of Encounter: 23:00 - Discharge Diagnosis (1) Inferior vena caval thrombosis Priority: Primary Status: Acute (2) Portal vein thrombosis Priority: Primary Status: Acute (3) Liver mass Priority: Primary Status: Acute (4) Alcohol use disorder Priority: Secondary Status: Chronic (5) Congestive heart failure Priority: Secondary Status: Suspected Qualifiers: Congestive heart failure type: diastolic Congestive heart failure chronicity: acute on chronic Qualified Code(s): I50.33 - Acute on chronic diastolic (congestive) heart failure (6) Hyponatremia Priority: Primary Status: Chronic - Discharge Medications Allergies/Adverse Reactions: 3 Allergy/AdvReac Type Severity Reaction Status Date / Time No Known Allergies Allergy Verified 09/05/17 18:41 Procedures/tests Complete & Pending: Procedures Performed prior 72 hours Category Date Time Status CT abd pelvis w iv no oral [CT] Routine Cat Scan 09/07/17 19:00 Completed US abdomen limited [US] Routine Exams 09/07/17 17:00 Completed EV echocardiogram w enhance Routine Y 09/06/17 23:31 Completed EV venous imaging LE BI Routine Y 09/06/17 23:31 Completed Date of admission: 09/05/17 21:24 Primary care physician: Yobani Berrios CNP Consults: 09/06/17 08:36 Consult to Cap Lining Machine Operator [CONS] Routine Reason for SW Consult: etoh use Discharging clinician: Shawn Corey Anticipated date of discharge: 09/08/17 - Patient Status Disposition: Transfer Short-Term Hosp Condition: Good Functional capacity at discharge: independent ambulation - Discharge Instructions Follow Up With: Yobani Berrios CNP [Primary Care Provider] - - Diet and Activity Activity: resume usual activities as tolerated Diet: other (per accepting physician's orders) Hospital course: Mr. Hollins is a 61 year old male with history of CHF (on Lasix but ran out) and history of alcohol abuse who initially presented for evaluation of worsening leg swelling. Noted worsening edema up to and including his abdomen. Otherwise , was asymptomatic. Patient had moderately elevated BNP, hyponatremia, and negative CXR on intiial work up. Admitted and treated for CHF exacerbation. ECHO done was technically limited but demonstrative of mild diastolic dysfunction. RUQ ultrasound showed mild ascites and intrahepatic IVC filling defect; CT of the Abdomen was recommended based on this. CT abdomen demonstrated ascites, hepatic mass involving the IVC, IVC distention, thrombus extending from IVC into the Rt-Atrium, and right portal venous thrombosis. Discussed case with Dr. Alcala (vascular surgery) regarding recommendations. Initiated heparin infusion and, per Dr. Alcala's recommendation, called [facility] for transfer for possible interventional treatment. Spoke with patient and spouse regarding these results; they are both clear on significance of results and recommended plan, and explicitly consent to all recommended facets of care including heparin and transfer to [facility]. - Time Spent with Patient Total time spent providing and/or coordinating discharge services: Less than 30 minutes - Constitutional Vitals: Temp Pulse Resp BP Pulse Ox 97.7 F 88 16 101/75 95 09/07/17 22:57 09/07/17 22:57 09/07/17 22:57 09/07/17 22:57 09/07/17 22:57 General appearance: Present: cooperative, disheveled, A&O X 3, pleasant, no acute distress, answers questions appropriately - Head Head exam: Present: normocephalic - Eye Eye exam: Present: sclera anicteric - Neck Neck exam general surgery: Present: trachea midline - Respiratory Respiratory exam: Present: wheezes. Absent: accessory muscle use, rales, respiratory distress, rhonchi, stridor - Cardiovascular Cardiovascular exam: Present: RRR, +S1, +S2. Absent: diastolic murmur, systolic murmur - Extremities Exam Extremities exam: Present: pedal edema, warm. Absent: calf tenderness, cyanotic - Skin Skin exam: Present: dry, intact. Absent: mottled, pallor, petechiae, rash <Danna Yin - Last Filed: 09/08/17 03:12> Date of Encounter: 09/08/17 Procedures/tests Complete & Pending: Procedures Performed prior 72 hours Category Date Time Status CT abd pelvis w iv no oral [CT] Routine Cat Scan 09/07/17 19:00 Completed US abdomen limited [US] Routine Exams 09/07/17 17:00 Completed EV echocardiogram w enhance Routine Y 09/06/17 23:31 Completed EV venous imaging LE BI Routine Y 09/06/17 23:31 Completed Date of admission: 09/05/17 21:24 Primary care physician: Yobani Berrios CNP Consults: 09/06/17 08:36 Consult to Cap Lining Machine Operator [CONS] Routine Reason for SW Consult: etoh use Hospital course: Mr. Hollins is a 61 year old male - Time Spent with Patient Total time spent providing and/or coordinating discharge services: - Constitutional Vitals: Temp Pulse Resp BP Pulse Ox 97.7 F 88 16 101/75 95 09/07/17 22:57 09/07/17 22:57 09/07/17 22:57 09/07/17 22:57 09/07/17 22:57 - Attending Attestation I have seen and examined this patient independently. I have discussed with resident physician Dr. Corey regarding the management plan. Agree with the documentation.
[2017-09-08] MEDS: Furosemide 40 MG/4 ML VIAL IVP SCH ×3 (08:24→16:38)
[2017-09-08] MEDS: Thiamine (B-1) 100 MG TABLET PO SCH (08:25)
[2017-09-08] MEDS: Vitamin B Complex/Vit C/Vit E 1 EACH TABLET PO SCH (08:25)
[2017-09-08] MEDS: Folic Acid 1 MG TABLET PO SCH (08:25)
[2017-09-08 09:27] LABS: Activated Partial Thrombo Time > 360.0 Seconds (26.0-36.0)
[2017-09-08] MEDS: Acetaminophen 325 MG TABLET PO PRN ×2 (10:38→18:20)
--- NOTE | 2017-09-08 14:40 | Internal Med Progress Note ---
Date of Encounter: 09/08/17 Time of Encounter: 10:00 - Assessment and plan (1) History of CHF (congestive heart failure) Current Visit: Yes Status: Acute Assessment and plan: Acute exacerbation. Patient presented to the emergency department with orthopnea edema from mid thigh to bilateral lower extremities. Echocardiogram with LVEF of 65%, mild LV DD, no significant valvular dysfunction. Continue IV Lasix 3 times a day Strict I&O monitor daily weights Continuous telemetry 1 L fluid restriction (2) Inferior vena caval thrombosis Current Visit: Yes Status: Acute Assessment and plan: Discovered per CT abdomen and pelvis with contrast. 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 Patient has been started on a heparin drip per recommendation of vascular surgery here. We are currently waiting on bed at [facility]. Patient has been accepted, but there is no bed availability at this time. We will continue heparin drip until time of transfer. Continue telemetry and monitor labs. (3) Pedal edema Current Visit: Yes Status: Acute Assessment and plan: Patient with +1-2 pitting edema bilateral lower extremities. Patient states that edema is better than on arrival. Continue IV Lasix Elevation (4) Portal vein thrombosis Current Visit: Yes Status: Acute Assessment and plan: Plan as above. (5) Hyponatremia Current Visit: Yes Status: Chronic Assessment and plan: Sodium 132. Improving of her admission. Continue to monitor and continue gentle IV fluid hydration when necessary (6) Tobacco abuse Current Visit: Yes Status: Chronic Assessment and plan: Cessation counseling completed. Patient has declined need for nicotine replacement therapy. (7) DVT prophylaxis Current Visit: Yes Status: Acute Assessment and plan: Patient on heparin drip. - Time Spent With Patient less than 15 minutes - Subjective Interval history: She was seen and assessed at bedside at 10 AM. was at bedside. They are aware that there is no bed available in stating we are waiting for bed to become available for his transfer. Patient denies any pain and states that he is feeling well. He denies any headache, dizziness, chest pain or shortness of breath. He denies any abdominal pain, nausea vomiting or diarrhea. - Constitutional Vitals: Temp Pulse Resp BP Pulse Ox 97.9 F 110 15 135/83 95 09/08/17 10:21 09/08/17 10:21 09/08/17 10:21 09/08/17 10:21 09/08/17 10:21 General appearance: Present: cooperative, disheveled, A&O X 3, pleasant, no acute distress, answers questions appropriately - Head Head exam: Present: atraumatic, normal inspection, normocephalic - Eye Eye exam: Present: normal appearance, PERRL, conjuntiva pink, sclera anicteric Pupils: Present: PERRL - Neck Neck exam general surgery: Present: supple, trachea midline. Absent: lymphadenopathy - Respiratory Respiratory exam: Present: CTAB. Absent: accessory muscle use, rales, rhonchi, wheezes - Cardiovascular Cardiovascular exam: Present: RRR, +S1, +S2. Absent: diastolic murmur, gallop, rubs, systolic murmur - GI/Abdominal GI/Abdominal exam: Present: distended, normal bowel sounds, soft, no peritoneal signs. Absent: hepatomegaly, tenderness - Extremities Exam Extremities exam: Present: normal capillary refill, warm, radial pulses palpable and symmetrical. Absent: calf tenderness, cyanotic, pedal edema, tenderness - Neurological Exam Neurological exam: Present: alert, oriented X3, no focal deficits. Absent: pronater drift, facial droop, speech deficit - Skin Skin exam: Present: dry, intact, warm. Absent: normal color, rash Internal Medicine: Result - Labs CBC & Chem 7: 09/08/17 00:28 09/08/17 00:28 - ABG Interpretation ABG results: PT/INR, D-dimer PT 18.6 Seconds (9.4-12.1) H 09/08/17 00:28 Consult Discharge Plan - Plan Referrals: Yobani Berrios, WORM PACKER [Primary Care Provider] -
[2017-09-08 14:49] LABS: Activated Partial Thrombo Time 179.2 Seconds (26.0-36.0)
[2017-09-08 14:57] LABS: Heparin anti-factor XA UFH 0.47 IU/mL (0.30-0.70)
--- NOTE | 2017-09-08 17:14 | Electrocardiograph Report ---
[address] [address] Test Date: 2017-09-05 Pat Name: Alexey Hollins Department: 104 Room: 3B Gender: M Crematory Operator: [facility] : 1955 Requested By: Roc Zavala Order Number: [id number] Reading MD: Edinson iDaz Measurements Intervals [place] Rate: 71 P: 41 [place]: 174 QRS: 27 QRSD: 93 T: 18 QT: 406 QTc: 429 Interpretive Statements SINUS RHYTHM LOW QRS VOLTAGE IN PRECORDIAL LEADS Electronically Signed On 09-08-2017 17:12:59 EST by Edinson Diaz
[2017-09-09] MEDS: Heparin 25,000 UNIT/500 ML D5W 25,000 UNIT/500 ML BAG IVC SCH (05:49)
[2017-09-09] MEDS: Thiamine (B-1) 100 MG TABLET PO SCH (07:46)
[2017-09-09] MEDS: Vitamin B Complex/Vit C/Vit E 1 EACH TABLET PO SCH (07:46)
[2017-09-09] MEDS: Folic Acid 1 MG TABLET PO SCH (07:46)
[2017-09-09] MEDS: Furosemide 40 MG/4 ML VIAL IVP SCH ×2 (07:49→11:46)
[2017-09-09 09:48] LABS: Hematocrit 45.1 % (37.5-50.1); Hemoglobin 15.5 g/dL (12.9-16.9); Immature Granulocytes % 0.3 % (0-4); Lymphocytes % 27.2 %; Mean Corpuscular HGB Conc 34.4 g/dL (31.6-35.5); Mean Corpuscular Hemoglobin 33.7 pg (28.0-33.3); Mean Platelet Volume 9.3 fL (9.4-12.4); Platelet Count 135 K/mcL (140-400); Red Cell Distribution Width 14.6 % (11.5-14.5); Segmented Neutrophils % 61.4 %
[2017-09-09 09:49] LABS: Basophils # 0.1 K/mcL (0.0-0.2); Eosinophils # 0.1 K/mcL (0.0-0.6); Eosinophils % 1.1 %; Lymphocytes # 1.9 K/mcL (0.6-4.6); Monocytes # 0.6 K/mcL (0.0-1.3); Neutrophils # 4.3 K/mcL (1.6-8.9)
[2017-09-09 10:03] LABS: BUN/Creatinine Ratio 16 (6-26); Blood Urea Nitrogen 13 mg/dL (8-23); Calcium 8.6 mg/dL (8.6-10.3); Carbon Dioxide 29 mEq/L (23-29); Chloride 94 mEq/L (98-107); Glucose 101 mg/dL (70-105); Osmolality,Calculated 274 (280-300); Potassium 3.1 mEq/L (3.5-5.1); Sodium 132 mEq/L (136-145); eGFR For African Americans > 60 (> 60); eGFR For Non-African Americans > 60 (> 60)
[2017-09-09 11:35] VITALS: BP 136/87
[2017-09-09] MEDS: Acetaminophen 325 MG TABLET PO PRN (11:44)
--- NOTE | 2017-09-09 17:05 | Internal Med Progress Note ---
Date of Encounter: 09/09/17 Time of Encounter: 14:45 - Assessment and plan (1) History of CHF (congestive heart failure) Status: Acute Assessment and plan: Acute exacerbation. Patient presented to the emergency department with orthopnea and edema from mid thigh to bilateral lower extremities. Echocardiogram with LVEF of 65%, mild LV DD, no significant valvular dysfunction. LE edema remains unchanged, +2 pitting. Continue IV Lasix 3 times a day Strict I&O monitor daily weights Continuous telemetry 1 L fluid restriction (2) Inferior vena caval thrombosis Status: Acute Assessment and plan: Discovered per CT abdomen and pelvis with contrast. Patient has portal venous thrombosis, IVC thrombosis extending in the right atrium. Patient has been started on a heparin drip per recommendation of vascular surgery here. Gtt has been stopped and started in relation to coag labs. Pt has bed at [facility]. Continue telemetry and monitor labs. (3) Pedal edema Status: Acute Assessment and plan: Patient with +1-2 pitting edema bilateral lower extremities. Patient states that edema is better than on arrival. Remains unchanged today. Continue IV Lasix Elevation of extremities (4) Portal vein thrombosis Status: Acute Assessment and plan: Plan as above. (5) Hyponatremia Status: Chronic Assessment and plan: Sodium 132. Improving since admission. Continue to monitor and continue gentle IV fluid hydration. (6) Tobacco abuse Status: Chronic Assessment and plan: Cessation counseling completed. Patient has declined need for nicotine replacement therapy. Continue to encourage cessation. (7) DVT prophylaxis Status: Acute Assessment and plan: Patient on heparin drip. - Subjective Interval history: She was seen and assessed at bedside at 1455. was at bedside. Pt and are aware of bed available at [facility] and pending transfer. Patient denies any pain and states that he is feeling well. He denies any headache, dizziness , chest pain or shortness of breath. He denies any abdominal pain, nausea vomiting or diarrhea. Pt has bed available at [facility], discharge summary completed, no changes. - Constitutional Vitals: Temp Pulse Resp BP Pulse Ox 97.7 F 107 20 136/87 96 09/09/17 11:00 09/09/17 11:00 09/09/17 11:00 09/09/17 11:00 09/09/17 11:00 General appearance: Present: cooperative, disheveled, A&O X 3, pleasant, no acute distress, answers questions appropriately - Head Head exam: Present: atraumatic, normal inspection, normocephalic - Eye Eye exam: Present: normal appearance, PERRL, conjuntiva pink, sclera anicteric Pupils: Present: PERRL - Neck Neck exam general surgery: Present: normal inspection, supple, trachea midline. Absent: lymphadenopathy, tenderness - Respiratory Respiratory exam: Present: CTAB. Absent: accessory muscle use, rales, rhonchi, wheezes - Cardiovascular Cardiovascular exam: Present: RRR, +S1, +S2. Absent: diastolic murmur, gallop, rubs, systolic murmur - GI/Abdominal GI/Abdominal exam: Present: distended, normal bowel sounds, soft. Absent: hepatomegaly, tenderness - Extremities Exam Extremities exam: Present: normal capillary refill, normal inspection, warm, radial pulses palpable and symmetrical. Absent: calf tenderness, cyanotic, pedal edema, tenderness - Neurological Exam Neurological exam: Present: alert, oriented X3, no focal deficits. Absent: facial droop, speech deficit - Skin Skin exam: Present: dry, intact, normal color, warm. Absent: rash Internal Medicine: Result - Labs CBC & Chem 7: 09/09/17 09:32 09/09/17 09:32 Labs: Short CBC 09/09/17 Range/Units 09:32 WBC 7.0 (4.3-11.1) K/mcL Hgb 15.5 (12.9-16.9) g/dL Hct 45.1 (37.5-50.1) % Plt Count 135 L (140-400) K/mcL Neutrophils # 4.3 (1.6-8.9) K/mcL BMP 09/09/17 09:32 Sodium 132 L Potassium 3.1 L Chloride 94 L Carbon Dioxide 29 BUN 13 Creatinine 0.79 Glucose 101 Calcium 8.6 - ABG Interpretation ABG results: PT/INR, D-dimer PT 18.6 Seconds (9.4-12.1) H 09/08/17 00:28 Consult Discharge Plan - Plan Referrals: Yobani Berrios, REHAB CONSULTANT [Primary Care Provider] -
== END 2017-09-09 15:37 | disposition short-term general hospital (02) | DRG 291 ==
LOC: 3BNU 18:33 → EMEROO 18:33 → 3BNU 21:55
PROVIDERS: ADMIT Internal Medicine Hematology & Oncology; ATTEND Registered Nurse

== ENCOUNTER 2018-02-22 17:41 | Inpatient (IN) ==
[2018-02-22] MEDS ORDERED: 0.9 % Sodium Chloride 1,000 ML IVC ONE ×2 (17:50→19:56)
[2018-02-22] MEDS ORDERED: Lidocaine 1% 20 ML MDV INFILT ONE (17:58)
[2018-02-22 19:04] LABS: VBG HCO3 7 mEq/L (21-27); VBG PCO2 24 mmHg (41-51); VBG PH 7.04 pH Units (7.32-7.42); VBG PO2 181 mmHg (25-50)
[2018-02-22 19:29] LABS: Albumin 2.2 g/dL (3.5-5.7); Albumin/Globulin Ratio 0.7 (1.1-2.2); Bilirubin,Indirect 1.2 mg/dL (0.0-1.2); Bilirubin,Total 3.2 mg/dL (0.3-1.0); Calcium 10.1 mg/dL (8.6-10.3); Globulin 3.2 g/dL (2.4-3.5); Potassium 6.2 mEq/L (3.5-5.1); Total Protein 5.4 g/dL (6.4-8.9); Troponin I 0.06 ng/mL (< 0.04)
--- NOTE | 2018-02-22 19:48 | Emergency Department Note ---
Disposition Clinical Impression: Respiratory distress, Hyperkalemia, Hyponatremia, PRADIP (acute kidney injury), Hypoglycemia Liver cancer Qualifiers: Liver malignancy type: unspecified liver malignancy Qualified Code(s): C22.9 - Malignant neoplasm of liver, not specified as primary or secondary Disposition: Admitted As Inpatient Condition: Critical General Adult HPI - General Chief complaint: ED Shortness of Breath/Dyspnea Stated complaint: ERIC Time Seen by Provider: 02/22/18 17:47 Source: EMS Mode of arrival: EMS Limitations: no limitations Nursing Notes Reviewed: Yes Vital Signs Reviewed: Yes - History of Present Illness HPI Narrative: Patient is a 62-year-old male with a past medical history of asthma, CHF, COPD, hypertension, Liver cancer with terminal prognosis of 6 months ago arrived by squad for difficulty in breathing. Squad states that on arrival to the home the patient appeared to be altered and hypoxic at 70% on room air. States they put him on nonrebreather at 15 L of oxygen that brought his oxygen saturation back up. Take the patient is denying any pain. Pain Scale: 0 - Related Data Home Medications Medication Instructions Recorded Confirmed Apixaban [Eliquis] 5 mg PO BID 02/22/18 02/22/18 Aspirin [Aspirin] 81 mg PO DAILY 02/22/18 02/22/18 Furosemide [Lasix] 40 mg PO DAILY 02/22/18 02/22/18 Metoprolol [Lopressor] 25 mg PO BID 02/22/18 02/22/18 Potassium Chloride [K-Tab ER] 20 meq PO DAILY 02/22/18 02/22/18 Spironolactone [Aldactone] 100 mg PO DAILY 02/22/18 02/22/18 Allergies Allergy/AdvReac Type Severity Reaction Status Date / Time No Known Allergies Allergy Verified 09/05/17 18:41 Limitations: ROS unobtainable due to patients medical condition Past Medical History - Past Medical History Attestation: Yes The following information was validated with the patient. Medical history: Reports: asthma, CHF, COPD, hypertension Surgical history: Reports: no surgical history Psychiatric history: Reports: no psych history - Social History Smoking Status: Current every day smoker Smokeless Tobacco Status: No Alcohol use: Reports: heavy, recent Drug use: Reports: none Physical Exam Patient arrived to the ED and he was hypoxic was immediately placed on BiPAP which brought his oxygen saturation up. He is also hypotensive in the 80s/60s. Heart rate is normal and he is afebrile. - General Limitations: altered mental status General appearance: alert, in distress, cachectic, other (Patient has multiple bulging veins across his chest consistent with end-stage liver disease.) - Head Head exam: atraumatic, normocephalic, normal inspection - Eye Eye exam: Present: normal appearance, PERRL, EOMI - ENT ENT exam: normal exam, mucous membranes dry - Neck Neck exam: Present: normal inspection, full ROM, trachea midline. Absent: tenderness - Chest Chest inspection: Present: normal inspection, symmetric chest wall rise - Respiratory Respiratory exam: Present: respiratory distress, accessory muscle use, other ( Patient has aeration in the upper lung steinberg with diminished sounds in the bilateral bases.). Absent: wheezes, stridor, prolonged expiratory phase - Cardiovascular Cardiovascular exam: Present: regular rate, normal rhythm, normal heart sounds, +S1, +S2 - Abdominal Exam Abdominal exam: Present: distention, normal bowel sounds, ascites. Absent: Non- Tender, guarding, rebound, rigidity - Extremities Exam Extremities exam: Present: normal inspection, full ROM, normal capillary refill. Absent: tenderness, pedal edema - Back Exam Back exam: Present: normal inspection - Neurological Exam Neurological exam: Present: alert, other (Patient is sitting up asking for water through the BiPAP mask.) - Psychiatric Psychiatric exam: Present: anxious - Skin Skin exam: Present: warm, dry, intact, pallor Course Course Narrative: Upon arrival to the ED limited information was provided by the squad they did notify of a poor prognosis with liver cancer that the patient has been altered mentally today and hypoxic upon arrival. Patient was initially placed on BiPAP. Initial VBG was shown to have a pH of 7.0 and a CO2 of 26. Multiple attempts were made by nurses with ultrasound to place a peripheral IV and the patient and this was unsuccessful. An IO was placed in his left tibia with a positive flush and fluids were initiated. The patient also underwent a central line placement in the right femoral vein. - Reevaluation(s) Reevaluation #1: A second liter of fluids was administered patient's blood pressure continues to remain in the 70s systolic, however the patient still mentating and family is currently at bedside. They state that the patient has a past medical history of liver cancer and was given a prognosis of 6 months 6 months ago. 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 They state that the patient has been having difficulty breathing over the past 3 weeks and that today when they were ambulate the patient to the bathroom they are unable to get him back in his bed due to him being so weak. They state that he started to say he loves everyone and thought he was going to pass away. That is when they called EMS. Patient continues to mentate and is able to identify his family members at bedside. Patient is continuing to get a second liter, we will hold on pressors at this time given that patient is mentating well continues to be on BiPAP at this time. His lab work is consistent with a anion gap metabolic acidosis most likely from uremia secondary to his liver disease. He does have a hyperkalemia however his EKG shows no signs of peaked T waves prolonged [place] interval or widened QRS. Patient is also hyponatremic is received 2 L of normal saline. Family states that the patient does not want any life-saving procedures such as intubation, ventilation or defibrillation/chest compressions if his heart stops. They do not have any DNR paperwork available. Time: 20:32 Reevaluation #2: Patient signed son signed DNRCCA paperwork. Critical lab called in with glucose in the teen's. Amp of D50 ordered as well as D5-1/2 Normal maintenance. Time: 21:11 Reevaluation #3: After further discussions with the patient's family they state that they would be okay with the patient undergoing primarily comfort care. The proper paperwork was filled out by my attending Dr. Nino inside-out was given to him as I am going off shift and he will complete the patient's admission to the hospital. Hospitalist was paged. Vital Signs Temperature 97.5 F L 02/22/18 17:42 Pulse Rate 87 02/22/18 17:42 Respiratory Rate 22 02/22/18 17:42 Blood Pressure 74/45 02/22/18 17:42 O2 Sat by Pulse Oximetry 92 02/22/18 17:42 Temperature 99.3 F 02/23/18 08:00 Pulse Rate 63 02/23/18 08:00 Respiratory Rate 13 02/23/18 08:00 Blood Pressure 49/31 02/23/18 08:00 O2 Sat by Pulse Oximetry 100 02/22/18 23:30 Oxygen Delivery Oxygen Delivery Non Rebreather Mask Procedures - Central Line Placement Right Femoral Central Line Inserted*: Yes Central Line Catheter Replacement*: Yes Central Line Insertion: emergent Consent Obtained: verbal consent Procedural Pause: verify patient name and date of , timeout performed per policy, aliza and assess the site, assemble equipment and verify supplies, perform hand hygiene Patient Placed on Monitor/Pulse Ox: Yes During the Procedure: clinician is wearing sterile gloves, cap, mask,& gown during insertion, sterile field and sterile technique are maintained, patient's face is covered with drape or mask and wearing a cap, everyone in room is wearing a mask Central Line Prep: Chlorhexidine scrub Prep the Procedure Site: apply chloraprep to the skin using a back and forth scrubbing motion, apply chloraprep for 30 seconds (upper body), 1-2 min ( femoral sites), drape the patient with a full body drape Local Anesthetic: lidocaine 1% Amount of anesthesia used (mL): 5 Ultrasound Used for Placement: Yes Central Line Lumen Inserted: triple Post Procedure: sutured in place, good blood return, sterile dressing applied, guide wire removed and visualized Patient Tolerated Procedure: well Complications: none Name of Clinician Inserting Central Line: Jim/Trung Clinician Assisting/Completing Checklist: Yes Date: 02/22/18 Time: 19:50 - IO Left Tibia Consent Obtained: verbal consent Time Out Performed: Yes Local Anesthetic: lidocaine 1% IO Instrument Used to Penetrate the Cortex: battery powered IO drill Patient Tolerated Procedure: well, no complications Complications: none Medical Decision Making - Medical Records Medical records reviewed: Yes I reviewed the patient's medical records. - Lab Data Lab results reviewed: Yes I reviewed the patient's lab results. Result diagrams: 02/22/18 20:00 02/22/18 18:47 Lab Results 02/22/18 02/22/18 02/22/18 Range/Units 18:47 18:57 20:00 WBC 16.0 H (4.3-11.1) K/mcL RBC 3.41 L (4.19-5.50) M/mcL Hgb 11.6 L (12.9-16.9) g/dL Hct 35.5 L (37.5-50.1) % MCV 104.1 H (83.0-100.0) fL MCH 34.0 H (28.0-33.3) pg MCHC 32.7 (31.6-35.5) g/dL RDW 17.1 H (11.5-14.5) % Plt Count 101 L (140-400) K/mcL MPV 10.1 (9.4-12.4) fL Immature Gran % 2.7 (0-4) % Seg Neutrophils % 73.8 % Lymphocytes % 15.3 % Monocytes % 7.6 % Eosinophils % 0.2 % Basophils % 0.4 % Neutrophils # 11.8 H (1.6-8.9) K/mcL Lymphocytes # 2.4 (0.6-4.6) K/mcL Monocytes # 1.2 (0.0-1.3) K/mcL Eosinophils # 0.0 (0.0-0.6) K/mcL Basophils # 0.1 (0.0-0.2) K/mcL Nucleated RBCs/100 WBC 0.2 H (0) /100 WBC PT (9.4-12.1) Seconds INR APTT (26.0-36.0) Seconds VBG pH 7.04 L* (7.32-7.42) pH Units VBG pCO2 24 L (41-51) mmHg VBG pO2 181 H (25-50) mmHg VBG HCO3 7 L (21-27) mEq/L Sodium 128 L (136-145) mEq/L Potassium 6.2 H (3.5-5.1) mEq/L Chloride 93 L (98-107) mEq/L Carbon Dioxide 9 L* (23-29) mEq/L BUN 31 H (8-23) mg/dL Creatinine 1.90 H (0.70-1.30) mg/dL Est GFR ( Amer) 43 L (> 60) Est GFR (Non-Af Amer) 36 L (> 60) BUN/Creatinine Ratio 16 (6-26) Glucose 14 L* (70-105) mg/dL POC Glucose (70-99) mg/dL Calculated Osmolality 268 L (280-300) Lactic Acid (0.5-2.2) mmol/L Calcium 10.1 (8.6-10.3) mg/dL Total Bilirubin 3.2 H (0.3-1.0) mg/dL Direct Bilirubin 2.0 H (0.0-0.2) mg/dL Indirect Bilirubin 1.2 (0.0-1.2) mg/dL AST 181 H (13-39) Units/L ALT 54 H (7-52) Units/L Alkaline Phosphatase 70 (34-104) Units/L Ammonia (16-53) mcmol/L Troponin I 0.06 H* (< 0.04) ng/mL B-Natriuretic Peptide (Less than 100) pg/mL Serum Total Protein 5.4 L (6.4-8.9) g/dL Albumin 2.2 L (3.5-5.7) g/dL Globulin 3.2 (2.4-3.5) g/dL Albumin/Globulin Ratio 0.7 L (1.1-2.2) Person Notif of Maranda BERNAL 02/22/18 02/22/18 02/22/18 Range/Units 20:00 20:00 20:00 WBC (4.3-11.1) K/mcL RBC (4.19-5.50) M/mcL Hgb (12.9-16.9) g/dL Hct (37.5-50.1) % MCV (83.0-100.0) fL MCH (28.0-33.3) pg MCHC (31.6-35.5) g/dL RDW (11.5-14.5) % Plt Count (140-400) K/mcL MPV (9.4-12.4) fL Immature Gran % (0-4) % Seg Neutrophils % % Lymphocytes % % Monocytes % % Eosinophils % % Basophils % % Neutrophils # (1.6-8.9) K/mcL Lymphocytes # (0.6-4.6) K/mcL Monocytes # (0.0-1.3) K/mcL Eosinophils # (0.0-0.6) K/mcL Basophils # (0.0-0.2) K/mcL Nucleated RBCs/100 WBC (0) /100 WBC PT 38.5 H (9.4-12.1) Seconds INR 3.4 APTT 49.0 H (26.0-36.0) Seconds VBG pH (7.32-7.42) pH Units VBG pCO2 (41-51) mmHg VBG pO2 (25-50) mmHg VBG HCO3 (21-27) mEq/L Sodium (136-145) mEq/L Potassium (3.5-5.1) mEq/L Chloride (98-107) mEq/L Carbon Dioxide (23-29) mEq/L BUN (8-23) mg/dL Creatinine (0.70-1.30) mg/dL Est GFR ( Amer) (> 60) Est GFR (Non-Af Amer) (> 60) BUN/Creatinine Ratio (6-26) Glucose (70-105) mg/dL POC Glucose (70-99) mg/dL Calculated Osmolality (280-300) Lactic Acid > 10.0 H* (0.5-2.2) mmol/L Calcium (8.6-10.3) mg/dL Total Bilirubin (0.3-1.0) mg/dL Direct Bilirubin (0.0-0.2) mg/dL Indirect Bilirubin (0.0-1.2) mg/dL AST (13-39) Units/L ALT (7-52) Units/L Alkaline Phosphatase (34-104) Units/L Ammonia (16-53) mcmol/L Troponin I (< 0.04) ng/mL B-Natriuretic Peptide 364 H (Less than 100) pg/mL Serum Total Protein (6.4-8.9) g/dL Albumin (3.5-5.7) g/dL Globulin (2.4-3.5) g/dL Albumin/Globulin Ratio (1.1-2.2) Person Notif of Crit 02/22/18 02/22/18 02/22/18 Range/Units 20:00 21:05 21:08 WBC (4.3-11.1) K/mcL RBC (4.19-5.50) M/mcL Hgb (12.9-16.9) g/dL Hct (37.5-50.1) % MCV (83.0-100.0) fL MCH (28.0-33.3) pg MCHC (31.6-35.5) g/dL RDW (11.5-14.5) % Plt Count (140-400) K/mcL MPV (9.4-12.4) fL Immature Gran % (0-4) % Seg Neutrophils % % Lymphocytes % % Monocytes % % Eosinophils % % Basophils % % Neutrophils # (1.6-8.9) K/mcL Lymphocytes # (0.6-4.6) K/mcL Monocytes # (0.0-1.3) K/mcL Eosinophils # (0.0-0.6) K/mcL Basophils # (0.0-0.2) K/mcL Nucleated RBCs/100 WBC (0) /100 WBC PT (9.4-12.1) Seconds INR APTT (26.0-36.0) Seconds VBG pH (7.32-7.42) pH Units VBG pCO2 (41-51) mmHg VBG pO2 (25-50) mmHg VBG HCO3 (21-27) mEq/L Sodium (136-145) mEq/L Potassium (3.5-5.1) mEq/L Chloride (98-107) mEq/L Carbon Dioxide (23-29) mEq/L BUN (8-23) mg/dL Creatinine (0.70-1.30) mg/dL Est GFR ( Amer) (> 60) Est GFR (Non-Af Amer) (> 60) BUN/Creatinine Ratio (6-26) Glucose (70-105) mg/dL POC Glucose 16 L* 14 L* (70-99) mg/dL Calculated Osmolality (280-300) Lactic Acid (0.5-2.2) mmol/L Calcium (8.6-10.3) mg/dL Total Bilirubin (0.3-1.0) mg/dL Direct Bilirubin (0.0-0.2) mg/dL Indirect Bilirubin (0.0-1.2) mg/dL AST (13-39) Units/L ALT (7-52) Units/L Alkaline Phosphatase (34-104) Units/L Ammonia 241 H (16-53) mcmol/L Troponin I (< 0.04) ng/mL B-Natriuretic Peptide (Less than 100) pg/mL Serum Total Protein (6.4-8.9) g/dL Albumin (3.5-5.7) g/dL Globulin (2.4-3.5) g/dL Albumin/Globulin Ratio (1.1-2.2) Person Notif of Crit 02/22/18 02/22/18 02/22/18 Range/Units 21:21 22:08 22:10 WBC (4.3-11.1) K/mcL RBC (4.19-5.50) M/mcL Hgb (12.9-16.9) g/dL Hct (37.5-50.1) % MCV (83.0-100.0) fL MCH (28.0-33.3) pg MCHC (31.6-35.5) g/dL RDW (11.5-14.5) % Plt Count (140-400) K/mcL MPV (9.4-12.4) fL Immature Gran % (0-4) % Seg Neutrophils % % Lymphocytes % % Monocytes % % Eosinophils % % Basophils % % Neutrophils # (1.6-8.9) K/mcL Lymphocytes # (0.6-4.6) K/mcL Monocytes # (0.0-1.3) K/mcL Eosinophils # (0.0-0.6) K/mcL Basophils # (0.0-0.2) K/mcL Nucleated RBCs/100 WBC (0) /100 WBC PT (9.4-12.1) Seconds INR APTT (26.0-36.0) Seconds VBG pH (7.32-7.42) pH Units VBG pCO2 (41-51) mmHg VBG pO2 (25-50) mmHg VBG HCO3 (21-27) mEq/L Sodium (136-145) mEq/L Potassium (3.5-5.1) mEq/L Chloride (98-107) mEq/L Carbon Dioxide (23-29) mEq/L BUN (8-23) mg/dL Creatinine (0.70-1.30) mg/dL Est GFR ( Amer) (> 60) Est GFR (Non-Af Amer) (> 60) BUN/Creatinine Ratio (6-26) Glucose (70-105) mg/dL POC Glucose 124 H 90 (70-99) mg/dL Calculated Osmolality (280-300) Lactic Acid > 10.0 H* (0.5-2.2) mmol/L Calcium (8.6-10.3) mg/dL Total Bilirubin (0.3-1.0) mg/dL Direct Bilirubin (0.0-0.2) mg/dL Indirect Bilirubin (0.0-1.2) mg/dL AST (13-39) Units/L ALT (7-52) Units/L Alkaline Phosphatase (34-104) Units/L Ammonia (16-53) mcmol/L Troponin I (< 0.04) ng/mL B-Natriuretic Peptide (Less than 100) pg/mL Serum Total Protein (6.4-8.9) g/dL Albumin (3.5-5.7) g/dL Globulin (2.4-3.5) g/dL Albumin/Globulin Ratio (1.1-2.2) Person Notif of Crit - Radiology Data Radiology results reviewed: Yes I reviewed the patient's radiology results. Chest X-Ray 02/22/18 17:48 IMPRESSION: Minimal bibasilar airspace disease, likely atelectasis on this low lung volume study. D/ / Zamzam Gant Cha, MD / Zamzam Gant Cha, MD Interpreting Provider: Zamzam Gant Cha, MD - EKG Data EKG #1 EKG attestation: Yes I reviewed and interpreted this EKG. EKG results narrative: EKG done at 17:59 shows sinus rhythm at a rate of 88 bpm. Normal axis. Normal intervals. No ST levation, depression or Q-waves present. Critical Care Time Critical Care Time: Yes Total Critical Care Time: 70 Attestation: Acute altered mental status w/ hypoxia and hypotension; Attestation Statement - Attestation Attestation: Dr. Nino note: Patient was seen in conjunction with resident Dr. Fernandez; please see his charting for complete documentation. [id number] time with the patient and agree with the patient's treatment and disposition; patient apparently lives with girlfriend for many years. It is unclear by history from additional family members when the patient exactly became ill but he has progressed over the last couple days to the point of distress that was described by family as being "unresponsive and perhaps short of breath. He at baseline has terminal metastatic cancer and he has decided with family not treated further. He has not been eating or drinking much and is been poorly performing his daily activities. Per family he has expressed to them that well to not be alive any longer for at least the past 2 years since the reported of another relative. He is conversive after treatment in the ER. He is hypoxic and cachectic. Blood pressure is persistently low in the ER but did respond to fluids and additional treatment and at different times blood pressure was above 90 and 100. Patient is unable to be oriented right his own name. Per my conversation with the family and the patient directly he clearly expresses his CODE STATUS is to be comfort care only and he no longer seeking medical treatment. His conversations were had after initial conversations at which point he was made comfort care arrest, and then after additional conversations his CODE STATUS was made comfort care only. These were clarified with 2 neices , 2 sons, his ex , his girlfriend, and others; patient noted to be severely anemic and dehydrated. scant urine output is noted. He was admitted to Dr. Pak at approx midnight in improved, but still very critical condition for comfort care measures; critical care time noted to be over 70 minutes;
[2018-02-22] MEDS ORDERED: 0.9 % Sodium Chloride 1,000 ML ONE (20:07)
[2018-02-22 20:18] LABS: Basophils # 0.1 K/mcL (0.0-0.2); Basophils % 0.4 %; Eosinophils % 0.2 %; Hematocrit 35.5 % (37.5-50.1); Hemoglobin 11.6 g/dL (12.9-16.9); Immature Granulocytes % 2.7 % (0-4); Lymphocytes # 2.4 K/mcL (0.6-4.6); Lymphocytes % 15.3 %; Mean Corpuscular HGB Conc 32.7 g/dL (31.6-35.5); Mean Corpuscular Volume 104.1 fL (83.0-100.0); Mean Platelet Volume 10.1 fL (9.4-12.4); Monocytes # 1.2 K/mcL (0.0-1.3); Monocytes % 7.6 %; Neutrophils # 11.8 K/mcL (1.6-8.9); Nucleated Red Blood Cells 0.2 /100 WBC (0); Platelet Count 101 K/mcL (140-400); Red Blood Count 3.41 M/mcL (4.19-5.50); Red Cell Distribution Width 17.1 % (11.5-14.5); Segmented Neutrophils % 73.8 %
[2018-02-22 20:32] LABS: INR 3.4; Prothrombin Time 38.5 Seconds (9.4-12.1)
[2018-02-22] MEDS ORDERED: Lidocaine Jelly 11 ml Syringe MM ONE (20:52)
[2018-02-22] MEDS ORDERED: *HR* Dextrose 50 % in Water (Syg) 50 ML SYRINGE IVP ONE ×2 (21:06→21:08)
[2018-02-22] MEDS ORDERED: *HR* Dextrose 50 % in Water (Syg) 50 ML SYRINGE ONE (21:08)
[2018-02-22] MEDS: D5% in 0.45% NACL 1,000 ML IVC SCH (21:12)
[2018-02-23] MEDS ORDERED: Naloxone 0.4 MG/ML INJ IVP PRN (00:36)
[2018-02-23] MEDS ORDERED: Atropine 1% Opth Drops 100 DROP/5 ML BOTTLE SL PRN (00:36)
[2018-02-23] MEDS ORDERED: *HR* LORazepam 2 MG/ML VIAL IVP PRN (00:36)
[2018-02-23] MEDS ORDERED: *HR* Morphine 2 MG/ML SYRINGE IVP PRN (00:36)
--- NOTE | 2018-02-23 00:50 | Internal Med History&Physical ---
Date of Encounter: 02/22/18 Time of Encounter: 22:15 Internal Medicine - H&P: HPI Chief complaint: pain; respiratory distress Admitted From: Emergency Dept Plans for Post Hospital Care: Home History of present illness: Mr. Hollins is a 62 year old male who presents to the ER tonight with complaints of significant pain, respiratory distress, and failure to thrive. He had evidence of hypoxemic respiratory failure, dehydration, and poor perfusion. He was placed on BiPAP and was fluid resuscitated for his hemodynamic instability. Patient has terminal liver cancer with metastatic disease. He was diagnosed roughly 6 months ago and was given an expected life span of roughly 6 months. His family brought him to the ER and then they left the premises. I was asked to admit patient to hospital service but CODE STATUS had not yet been established and patient was unable to provide any history and/or respond appropriately. We tried to contact his family members by all the numbers listed , and were unable to reach them by telephone. Upon my assessment of the patient in the ER earlier this evening, patient was alert and oriented to self only. He was confused, disoriented, and somnolent. He is dehydrated, in significant distress from pain, and is exhibiting significant work of breathing and respiratory distress. His 2 nieces arrived roughly an hour later who confirmed the above history and his prior expressed wishes that he would only want palliative care. They requested to not treat him aggressively and provide comfort measures only to allow him to peacefully. I met with the 2 nieces, and then I contacted his son (next of kin ) by telephone. I spoke with his son by telephone (Papi Hollins) who agreed and confirmed patient to be DNR CC CODE STATUS and to pursue comfort care measures only. I explained to him and his nieces present [facility] Their wish for patient is to provide comfort care only so as to ease the dying process. Patient refused treatment for his liver cancer when he was initially diagnosed as he was too for advanced. The wish per his family now is to provide comfort care only and forego any aggressive treatment. Past Med Surg Social Fam HX - Past Medical History Source: old records reviewed, obtained from family Medical history: asthma, cancer (terminal liver cancer), CHF, COPD, hypertension Psychiatric history: no psych history - Past Surgical History Surgical History: no surgical history - Social History Smoking Status: Current every day smoker Smokeless Tobacco Status: No Alcohol use: heavy, recent Drug use: none - Family History Mother History Unknown: Yes Father History Unknown: Yes Internal Medicine - H&P: Meds Apixaban [Eliquis] 5 mg PO BID 02/22/18 [History] Aspirin [Aspirin] 81 mg PO DAILY 02/22/18 [History] Furosemide [Lasix] 40 mg PO DAILY 02/22/18 [History] Metoprolol [Lopressor] 25 mg PO BID 02/22/18 [History] Potassium Chloride [K-Tab ER] 20 meq PO DAILY 02/22/18 [History] Spironolactone [Aldactone] 100 mg PO DAILY 02/22/18 [History] 3 Allergy/AdvReac Type Severity Reaction Status Date / Time No Known Allergies Allergy Verified 09/05/17 18:41 ROS unobtainable: due to mental status - Constitutional Vitals: Temp Pulse Resp BP Pulse Ox 97.5 F L 96 18 85/49 100 02/22/18 17:42 02/22/18 23:30 02/22/18 23:30 02/22/18 23:30 02/22/18 23:30 General appearance: Present: cachectic, A&O X 1, disheveled, severe distress. Absent: answers questions appropriately Exam: malnourished, in significant distress due to pain and respiratory difficulty - Head Head exam: Present: atraumatic - Eye Eye exam: Present: EOMI, scleral icterus (mild) Additional comments: eyes sunken - ENT ENT exam: Present: mucous membranes dry, normal oropharynx - Neck Neck exam general surgery: Present: full ROM, supple. Absent: tenderness, nuchal rigidity, thyromegaly - Respiratory Respiratory exam: Present: accessory muscle use, rales, respiratory distress, rhonchi, wheezes, tachypnea. Absent: chest wall tenderness - Cardiovascular Cardiovascular exam: Present: distant heart sounds, +S1, +S2, tachycardia. Absent: diastolic murmur, systolic murmur - GI/Abdominal GI/Abdominal exam: Present: diminished bowel sounds, hypoactive bowel sounds, soft, tenderness (diffusely). Absent: guarding, rigid - Extremities Exam Extremities exam: Present: warm. Absent: calf tenderness, joint swelling Additional comments: muscle atrophy; poor perfusion - Back Exam Back exam: Absent: CVA tenderness (L), CVA tenderness (R) - Neurological Exam Neurological exam: Present: altered, no focal deficits. Absent: oriented X3 Additional comments: patient moving all four extremities; unable to perform full neurologic assessment - Skin Skin exam: Present: dry, intact, warm (trunk; cool extremities) Internal Med - H&P Results - Labs CBC & Chem 7: 02/22/18 20:00 02/22/18 18:47 - Diagnostic Studies Chest x-ray Status: image reviewed by me (negative) - VTE Reasons for not Prescribing Prophylaxis: Medical contraindication - Assessment and plan (1) Liver cancer Current Visit: Yes Status: Acute Assessment and plan: 1. Patient declined treatment at diagnosis 6 months ago due to advanced stage and terminal condition. 2. After confirmation with multiple family members and son/next of kin (Papi Hollins), patient to be admitted for palliative care only. 3. Will provide pain relief with IV Morphine, anxiety relief with IV Ativan, Atropine SL drops for excessive secretions, and oxygen as needed. 4. Goal of care is comfort care only. 5. Consult palliative care to assume care in the morning. 6. Patient may not survive the evening -- discussed with family and they are aware. Qualifiers: Liver malignancy type: unspecified primary liver malignancy Qualified Code( s): C22.8 - Malignant neoplasm of liver, primary, unspecified as to type (2) Respiratory distress Current Visit: Yes Status: Acute Assessment and plan: 1. Comfort care only with oxygen , pain control, aerosols, suction, etc. (3) DVT prophylaxis Current Visit: Yes Status: Acute Assessment and plan: 1. N/A -- patient is terminal and actively dying.
[2018-02-23] MEDS ORDERED: Ipratropium/Albuterol Neb 3 ML IH PRN (01:09)
[2018-02-23 08:01] VITALS: BP 49/31
--- NOTE | 2018-02-23 08:46 | Palliative - Consult Note ---
Date of Encounter: 02/23/18 Time of Encounter: 08:25 - Assessment and Plan (1) Respiratory distress Current Visit: Yes Status: Acute Assessment and plan: Patient noted to have agonal breathing with increased accessory muscle usage. Patient wearing oxymask at 10 %. Continue oxygen therapy. Notified Primary RN of need for dose of Morphine; will transition Morphine and Ativan to SL dosing. (2) Liver cancer Current Visit: Yes Status: Acute Assessment and plan: Patient has terminal liver cancer. Qualifiers: Liver malignancy type: unspecified liver malignancy Qualified Code(s): C22.9 - Malignant neoplasm of liver, not specified as primary or secondary (3) Goals of care, counseling/discussion Current Visit: Yes Status: Acute Assessment and plan: Spoke with family regarding goals of care. Patient has more children and grandchildren coming to visit. Refused pastoral care at this time. Patient's family desires to keep patient comfortable with family around. Explained will likely stay at hospital for duration of life; verbalized understanding as condition deteriorating rapidly. Spoke with Dr. Lindo, patient to stay on hospitalist service at this time, Palliative care to manage symptoms. Family has requested not many outsiders to come in room as they feel "patient would not want that." Notified family to please contact nurse with any needs. Palliative-CN HPI - Data of Consult Patient: new to practice Consult date: 02/23/18 Requesting Physician: Dayday Crandall MD Primary Care Provider: Yobani Berrios CNP - Consult Narrative Palliative Care/Comfort Measures: Palliative care Reason for consult: End of life care History of present illness: Mr. Hollins is a 62 year old male arrived to [facility] ED for hypoxia, placed on BiPAP , and hypotensive on 02/22/11. Upon arrival to ER patient had AMS, respiratory distress, and no family present at bedside. Question over CODE STATUS was solved via telephon conversation with son, Papi Hollins per documentation. Patient's CODE STATUS established as DNR CC with goal for comfort only. PMH: Asthma, Terminal Liver Cancer, CHF, COPD, and HTN. Patient had been diagnosed with liver cancer with 6 month prognosis, approximately 6 months ago. Patient admitted for respiratory distress and liver cancer. Upon arrival for assessment, patient nonresponsive to verbal, tactile, or pain stimulation. Patient's right eye open and left eye closed. Patient's ex-, girlfriend, and son "Yasir" present at bedside. Patient noted to have increased labored breathing with intermittent periods of apnea. Patient has received 1 dose PRN Ativan and 1 dose PRN Morphine in the last 24 hours. CC: Dayday Crandall MD Past Med Surg Social Fam HX - Past Medical History Medical history: asthma, cancer, cirrhosis (Per exwife), CHF, COPD, hypertension , malignancy (liver) Psychiatric history: no psych history - Past Surgical History Surgical History: no surgical history - Social History Smoking Status: Current every day smoker Smokeless Tobacco Status: No Alcohol use: heavy, recent Drug use: none - Family History Mother History Unknown: Yes Father History Unknown: Yes Medications and Allergies Apixaban [Eliquis] 5 mg PO BID 02/22/18 [History] Aspirin [Aspirin] 81 mg PO DAILY 02/22/18 [History] Furosemide [Lasix] 40 mg PO DAILY 02/22/18 [History] Metoprolol [Lopressor] 25 mg PO BID 02/22/18 [History] Potassium Chloride [K-Tab ER] 20 meq PO DAILY 02/22/18 [History] Spironolactone [Aldactone] 100 mg PO DAILY 02/22/18 [History] 3 Allergy/AdvReac Type Severity Reaction Status Date / Time No Known Allergies Allergy Verified 09/05/17 18:41 ROS unobtainable: due to mental status - Gastrointestinal Gastrointestinal: other (Increased abominal distention/swelling r/t cirrhosis.) Palliative Care-Exam - Constitutional Vitals: Temp Pulse Resp BP Pulse Ox 99.3 F 63 13 49/31 100 02/23/18 08:00 02/23/18 08:00 02/23/18 08:00 02/23/18 08:00 02/22/18 23:30 General appearance: Present: mild distress - Head Head Exam: Present: atraumatic, normal inspection - Eye Eye exam: Present: normal appearance. Absent: periorbital swelling, periorbital tenderness, conjuntiva pink (yellowing noted.) - ENT ENT exam: Present: mucous membranes dry, normal external ear exam - Expanded ENT Exam Mouth Exam: Absent: drooling - Neck Neck exam: Present: normal inspection - Respiratory Respiratory exam: Present: accessory muscle use, respiratory distress, rhonchi, wheezes. Absent: chest wall tenderness, CTAB - Cardiovascular Cardiovascular exam: Present: RRR, +S1, +S2 - Expanded Cardiovascular Exam Peripheral pulses: 0: Radial (L), Radial (R), Posterior Tibialis (L), Posterior Tibialis (R), Dorsalis Pedis (L) PM, Dorsalis Pedis (R) PM, 1+: Femoral (L) PM, Femoral (R) PM - GI/Abdominal Exam GI/Abdominal exam: Present: diminished bowel sounds, distended, firm. Absent: guarding, tenderness - Expanded GI/Abdominal Exam GI/Abdominal exam: Present: ascites - Rectal Rectal Exam: Present: deferred - Catheter Type: Urethral (Parish) - Neurological Exam Neurological exam: Present: altered. Absent: alert, oriented X3, facial droop - Expanded Neurological Exam Coma Scale Eye Opening: None Coma Scale Motor Response: Extensor Response Coma Scale Verbal Response: None Coma Scale Total: 4 - Psychiatric Psychiatric exam: Present: flat affect - Skin Skin exam: Present: dry, mottled. Absent: normal color (jaundice and mottling) Internal Medicine - CN: Reslt - Labs CBC & Chem 7: 02/22/18 20:00 02/22/18 18:47 - ABG Interpretation ABG results: PT/INR, D-dimer PT 38.5 Seconds (9.4-12.1) H 02/22/18 20:00 Consult Discharge Plan - Plan Referrals: Yobani Berrios [employer]ER [Primary Care Provider] - Palliative Quality Palliative Quality: Screen for Code Status: Yes, Screen for Goals of Care: Yes, Screen for Pain: NA (Nonresponsive), If Pain Regimen Started, Initiate Bowel Regimen: NA (Non responsive), Screen for Nausea/Vomitting: NA (nonresponsive) Code Status: 02/23/18 00:36 Resuscitation Status: Active [RES] Routine Comment: Resuscitation Status: DNR-Comfort Care
[2018-02-23] MEDS ORDERED: *HR* LORazepam Oral Conc 2 MG/ML SL PRN (09:05)
[2018-02-23] MEDS ORDERED: MORPHINE SUL Oral CONC 10 MG/0.5 ML ORAL.SYG SL PRN (09:06)
[2018-02-23] MEDS: D5% in 0.45% NACL 1,000 ML IVC SCH (09:23)
--- NOTE | 2018-02-23 10:07 | Event Note ---
Date of Encounter: 02/23/18 Time of Encounter: 10:04 Patient was seen and examined. I agree with the progress note as written by the resident physician. Patient with AMS, dehydration, metabolic acidoisis, hypoglycemia, hyperkalemia, respiratory failure. Has metastatic liver cancer. Family at bedside and palliative involved. Plans are for comfort care. GEN: Unresponsive CVS: RRR. S1, S2, No m/r/g RESP: Diminished ABD: Soft, NT, ND, +BS EXT: No edema. 2+ DP. No rashes NEURO: Nonfocal Will continue comfort measures with palliative's service help. plans to transition to hospice inpatient if patient doesn't pass soon. Patient seems in no distress currently.
--- NOTE | 2018-02-23 11:46 | Internal Med Progress Note ---
Date of Encounter: 02/23/18 Time of Encounter: 11:42 - Assessment and plan (1) DVT prophylaxis Current Visit: Yes Status: Acute Assessment and plan: 1. N/A -- patient is terminal and actively dying. 02/23- Patient terminal and actively dying, comfort care only (2) Respiratory distress Current Visit: Yes Status: Acute Assessment and plan: 1. Comfort care only with oxygen , pain control, aerosols, suction, etc. 02/23- patient still comfort care, does not seem to be in respiratory distress with oxymask, continue current management (3) Liver cancer Current Visit: Yes Status: Acute Assessment and plan: 1. Patient declined treatment at diagnosis 6 months ago due to advanced stage and terminal condition. 2. After confirmation with multiple family members and son/next of kin (Papi Hollins), patient to be admitted for palliative care only. 3. Will provide pain relief with IV Morphine, anxiety relief with IV Ativan, Atropine SL drops for excessive secretions, and oxygen as needed. 4. Goal of care is comfort care only. 5. Consult palliative care to assume care in the morning. 6. Patient may not survive the evening -- discussed with family and they are aware. 02/23- Continue comfort care measures Qualifiers: Liver malignancy type: unspecified liver malignancy Qualified Code(s): C22.9 - Malignant neoplasm of liver, not specified as primary or secondary - Time Spent With Patient Total time spent is greater than 50% in coordination of care (as documented) at patient's floor/unit and/or counseling patient: - Subjective Interval history: Discussed patient course with family. They are aware he will likely pass soon. Discussed with palliative, who is involved in comfort care measures. Everyone in agreement. Hospice discharge unlikely given patients current course. - Constitutional Vitals: Temp Pulse Resp BP Pulse Ox 99.3 F 63 13 49/31 100 02/23/18 08:00 02/23/18 08:00 02/23/18 08:00 02/23/18 08:00 02/22/18 23:30 General appearance: Present: cachectic, A&O X 1, disheveled, severe distress. Absent: answers questions appropriately Exam: Patient resting comfortably, does not seem to be in any distress Patient not responsive to stimuli Taking agonal breaths on rebreather Lungs clear to auscultation Heart sounds distant Skin warm and dry Internal Medicine: Result - Labs CBC & Chem 7: 02/22/18 20:00 02/22/18 18:47 - ABG Interpretation ABG results: PT/INR, D-dimer PT 38.5 Seconds (9.4-12.1) H 02/22/18 20:00 - VTE Reasons for not Prescribing Prophylaxis: Medical contraindication Consult Discharge Plan - Plan Referrals: Yobani Berrios CNP [Primary Care Provider] -
--- NOTE | 2018-02-23 15:28 | Death Note ---
Discharge Sum: Summary - Date and Time Date of admission: 02/23/18 00:27 Date of : 02/23/18 Time of : 13:33 - Summary Details: 58 4L male who initially presented with chief complaint of pain, difficulty breathing and failure to thrive. He was in acute respiratory failure with hypoxia and placed on BiPAP and given IV fluids for resuscitation. Patient has terminal liver cancer with metastatic disease which was diagnosed 6 months ago and his lifespan was suspected to about 6 months. Patient's family on admission reported that they would like him to be in comfort care and peacefully. This was verified by also speaking to the patient's son on the phone. Palliative care was consulted and patient was given morphine and Ativan for symptomatic relief. Patient at 13:33. Family was present in the room. - Additional Data Confirmation of as documented by pronouncing clinician: no pulse, no respirations, no heart sounds Family: at bedside Additional persons at bedside: sarabjit, public health social worker Attending/PCP notified?: Yes Attending physician: Dayday Crandall MD Was code activated?: No Autopsy requested?: No Hospice patient?: No Discharge Sum: Diag - PCOD Probable Cause of : Acute respiratory failure with hypoxia and hypercapnia Discharge Sum: Prov - Provider Primary care physician: Yobani Berrios CNP Admitting clinician: Dayday Crandall Attending physician on admission: Roger Guillen Consults: 02/23/18 00:36 Consult to Palliative Care [CONS] Routine Comment: Consulting Provider: Palliative Care Milli Reason for Consult: end of life care Call Completed: No
--- NOTE | 2018-02-24 17:15 | Electrocardiograph Report ---
[place] [id number] Test Date: 2018-02-22 Pat Name: Alexey Hollins Department: 103 Room: 2A Gender: M Pediatric Orthodontist: : 1955 Requested By: Mj Fernandez Order Number: [id number] Reading MD: Edinson Diaz Measurements Intervals [place] Rate: 88 P: 72 IA: 195 QRS: 64 QRSD: 96 T: 72 QT: 368 QTc: 413 Interpretive Statements SINUS RHYTHM LOW QRS VOLTAGE IN PRECORDIAL LEADS Electronically Signed On 02-24-2018 17:14:07 EDT by Edinson Diaz
== END 2018-02-23 13:33 | disposition expired | DRG 435 ==
LOC: EMEROO 17:41 → ICNU 23:41 → 2ANU 02-23 00:27
PROVIDERS: ADMIT Pediatrics; ATTEND Pediatrics